=== PATIENT | male | born 1990 | race Caucasian/White ===

== ENCOUNTER → 2022-08-28 09:44 | Outpatient (BNVA) | payer OTHER, SELFPAY | PROVIDERS: Visit Provider Family Medicine | DX: R01.1 Cardiac murmur, unspecified (principal); Z76.89 Persons encountering health services in other specified circumstances | CPT/HCPCS: 80053; 84443; 85025 ==

== ENCOUNTER 2023-06-23 10:29 | Outpatient (CLI) | payer OTHER, SELFPAY ==
--- NOTE | 2023-06-23 10:39 | XR_ITS ---
WS: [id number] Exam: XR chest 2V* [id number] Date/Time of Exam: 06/23/2023 10:51 AM Reason For Exam: Chest pain No priors. The lungs are clear and fully expanded. Normal cardiomediastinal silhouette. Regional bony elements are intact. Benign-appearing pulmonary and mediastinal calcifications. IMPRESSION: 1. No acute cardiopulmonary process.
== END 2023-06-23 10:30 | disposition home or self-care (01) ==
PROVIDERS: Visit Provider Family Medicine
DX: R07.9 Chest pain, unspecified (principal)
CPT/HCPCS: 71046

== ENCOUNTER → 2024-08-18 11:10 | Outpatient (BNVA) | payer OTHER, SELFPAY | DX: I44.0 Atrioventricular block, first degree (principal) | CPT/HCPCS: 80053; 85025 ==

== ENCOUNTER 2025-04-11 19:44 | Emergency (ER) | payer OTHER, SELFPAY ==
[2025-04-11 20:01] VITALS: BP 98/59; PULSE 72; RESP 16; TEMP 36.9; O2SAT 97
--- NOTE | 2025-04-11 20:09 | ECG_ITS ---
[employer] Test Date: 2025-04-11 Pat Name: Kev Garcia Department: Room: Gender: Male Purchasing Coordinator: : 1990 Requested By: Deisi Jarvis Order Number: [id number] Zabrina MD: Luz Farias M.D. Measurements Intervals [place] Rate: 70 P: 62 [place]: 226 QRS: 32 QRSD: 112 T: 37 QT: 387 QTc: 418 Interpretive Statements SINUS RHYTHM WITH FIRST DEGREE AV BLOCK SEPTAL MYOCARDIAL INFARCTION , OF INDETERMINATE AGE [40+ ms Q WAVE IN V1/V2] No previous ECG available for comparison Electronically Signed On 04-13-2025 06:09:14 CDT by Luz Farias M.D. [id number]
[2025-04-11 21:26] LABS: Influenza A NEGATIVE (Negative); Influenza B NEGATIVE (Negative); Respiratory Syncytial Virus Ce NEGATIVE (Negative)
[2025-04-11 21:34] LABS: Basophils % 0.6 %; Eosinophils # 0.1 10^3/uL (0.0-0.8); Eosinophils % 0.7 %; Hematocrit 44.7 % (37-53); Lymphocytes # 0.5 10^3/uL (0.8-4.8); Lymphocytes % 7.4 %; Mean Corpuscular Hemoglobin 29.5 pg (27-33); Mean Corpuscular Volume 86.6 fl (82-101); Mean Platelet Volume 10.2 fL (7.4-10.4); Monocytes # 0.8 10^3/uL (0.2-0.9); Monocytes % 11.6 %; Neutrophils # 5.68 10^3/uL (1.8-7.7); Neutrophils % 79.1 %; Nucleated Red Blood Cells % 0 %; Platelet Count 180 10^3/cmm (157-399); Red Blood Count 5.16 10^6/uL (3.85-5.65); Red Cell Distribution Width 12.6 % (12.1-15.1); White Blood Count 7.17 10^3/uL (3.29-11.43)
[2025-04-11 21:36] VITALS: BP 100/66; PULSE 67; RESP 16; O2SAT 95
--- NOTE | 2025-04-11 21:52 | ED_ITS ---
HPI - Syncope 2 General: Chief Complaint: Syncope Stated Complaint: possible covid positive/ syncope Time Seen by Provider: 04/11/25 21:46 Source: patient and EMS Mode of arrival: EMS Limitations: no limitations History of Present Illness: 34-year-old male states he has had COVID -like symptoms over the last 2 days some bodyaches chills states that [place] started to feel diaphoretic felt lightheaded and had a syncopal event. He did receive IV fluids en route by EMS states that he feels much improved currently denies hitting his head denies any headache denies any chest pain. Associated symptoms: Reports headache(s); Deny abdominal pain, chest pain, fever(s) or nausea Related Data Previous Rx's ?Medication ?Instructions ?Recorded doxycycline hyclate 100 mg capsule 100 mg PO BID #14 c aps 09/15/24 Allergies Allergy/AdvReac Type Severity Reaction Status Date / Time No Known Allergies Allergy Verified 08/18/24 10:46 Review of Systems 2 Const: Denies: fever(s), chills, body aches or change in appetite ENMT: Denies: throat pain or dental pain Card: Denies: chest pain Resp: Denies: dyspnea GI: Denies: abdominal pain, nausea, vomiting or diarrhea Musc: Denies: neck pain or back pain Skin/Breast: Denies: rash Neuro: Reports: headache(s) PFSH ED 2 PFSH: Medical History Encounter to establish care Family History Mother No problems noted. Father Diabetes Hypertension Social History Smoking and tobacco/nicotine status: never used tobacco/nicotine Alcohol intake: never Substance/Drug Use: never Adopted: No Physical Exam 2 Const: COMMON NORMALS: no acute distress, patient oriented x3 and healthy appearing HENMT: COMMON NORMALS: normocephalic and atraumatic HEAD & SCALP: n ormocephalic and atraumatic Eye: COMMON NORMALS: conjunctivae normal CONJUNCTIVA: Yes conjunctivae normal Neck/C-Spine: COMMON NORMALS: full ROM and supple Chest: COMMONS NORMALS: normal inspection of the chest Resp: COMMON NORMALS: normal respiratory effort, No retractions, No use of accessory muscles and clear to auscultation bilaterally AUSCULTATION: clear to auscultation bilaterally Cardio: COMMON NORMALS: regular rate, regular rhythm and No murmurs present (Cardio) RATE: regular rate RHYTHM: regular rhythm Extremity: COMMON NORMALS: normal to inspection and full ROM Neuro: COMMON NORMALS: patient oriented x3, moves all extremities and no focal motor deficits Psych: COMMON NORMALS: mental status grossly normal, Normal thought process present and cooperative THOUGHT PROCESS: Normal thought process present Skin: COMMON NORMALS: no rashes or lesions noted and no wounds GENERAL SKIN EXAM: no rashes or lesions noted Course 2 Vital Signs: Vital signs: Vital Signs Temperature 98.5 F 04/11/25 20:01 Pulse Rate 67 04/11/25 21:36 Respiratory Rate 16 04/11/25 21:36 Blood Pressure 100/66 04/11/25 21:36 Pulse Oximetry 95 04/11/25 21:36 Oxygen Delivery Me thod Room Air 04/11/25 21:36 MDM - Syncope Medical Decision Making Patient presents after syncopal event likely vasovagal he also tested positive for COVID he is well-appearing here stable for discharge at this time he feels much improved. Follow-up PCP return if worsening Medical Records I reviewed the patient's medical records. Lab Data I reviewed the patient's lab results. 04/11/25 21:24 04/11/25 21:24 Laboratory Results WBC 7.17 10^3/uL (3.29-11.43) 04/11/25 21:24 RBC 5.16 10^6/uL (3.85-5.65) 04/11/25 21:24 Hgb 15.20 g/dL (11.27-16.99) 04/11/25 21:24 Hct 44.7 % (37-53) 04/11/25 21:24 MCV 86.6 fl (82-101) 04/11/25 21:24 MCH 29.5 pg (27-33) 04/11/25 21:24 MCHC 34.0 g/dL (30-55) 04/11/25 21:24 RDW 12.6 % (12.1-15.1) 04/11/25 21:24 Plt Count 180 10^3/cmm (157-399) 04/11/25 21:24 MPV 10.2 fL (7.4-10.4) 04/11/25 21:24 Neut % (Auto) 79.1 % 04/11/25 21:24 Lymph % (Auto) 7.4 % 04/11/25:24 [place] % (Auto) 11.6 % 04/11/25: Eos % (Auto) 0.7 % 04/11/25: Baso % (Auto) 0.6 % 04/11/25: Neut # (Auto) 5.68 10^3/uL (1.8-7.7) 04/11/25: Lymph # (Auto) 0.5 10^3/uL (0.8-4.8) L 04/11/25: [place] # (Auto) 0.8 10^3/uL (0.2-0.9) 04/11/25: Eos # (Auto) 0.1 10^3/uL (0.0-0.8) 04/11/25: Baso # (Auto) 0.0 10^3/uL (0.0-0.1) 04/11/25: Nucleated RBC % (auto) 0 % 04/11/25: Nucleated RBCs # 0.0 /100WBC 04/11/25 21:24 Sodium 138 mmol/L (136-145) 04/11/25 21:24 Potassium 4.0 mmol/L (3.5-5.1) 04/11/25 21: Chloride 101 mmol/L (98-107) 04/11/25 21:24 Carbon Dioxide 25 mmol/L (22-29) 04/11/25 21:24 Anion Gap 16.0 (5-19) 04/11/25 21:24 BUN 13 mg/dL (6-20) 04/11/25 21: Creatinine 1.0 mg/dL (0.7-1.2) 04/11/25 21:24 GFR Calculation 86.6 mL/min (90-130) L 04/11/25 21:24 Glucose 114 mg/dL (65-115) 04/11/25 21:24 Calculated Osmolality 287 mOsm/kg (285-295) 04/11/25 21:24 Calcium 9.4 mg/dL (8.5-10.5) 04/11/25 21:24 Total Bilirubin 0.5 mg/dL (0.15-1.2) 04/11/25 21:24 AST 22 U/L (0-40) 04/11/25 21:24 ALT 23 U/L (0-41) 04/11/25 21:24 Alkaline Phosphatase 65 U/L (40-130) 04/11/25 21:24 Total Protein 8.0 g/dL (6.6-8.7) 04/11/25 21:24 Albumin 4.5 g/dL (3.5-5.2) 04/11/25 21:24 Globulin 3.5 g/dL (1.3-4.6) 04/11/25 21:24 Influenza A (PCR) Negative (Negative) 04/11/25 20:13 Influenza Type B (PCR) Negative (Negative) 04/11/25 20:13 RSV (PCR) Negative (Negative) 04/11/25 20:13 SARS-CoV-2 (PCR) Positive (Negative) A 04/11/25 20:13 No radiology studies performed this visit Discharge Plan Discharge Patient Disposition: Home Clinical Impression: Syncope, COVID-19 Condition: Stable Prescriptions: No Action doxycycline hyclate 100 mg capsule 100 mg PO BID Qty: 14 0RF Discharge Orders: Discharge ED (Routine); Ordered 04/11/25 Ordered By: Deisi Jarvis Referrals: Sabrina Kim NP [Primary Care Provider, [facility]] - 4-7 days Discharge Diet: Advance as tolerated Discharge Activity: Resume usual activity Patient Instructions: Syncope (ED), COVID-19 (Coronavirus Disease 2019) (ED) Print Language: [place] Coding Level of Care Code ED [employer] Constance Nicholas
[2025-04-11 21:57] LABS: Alanine Aminotransferase 23 U/L (0-41); Albumin Level 4.5 g/dL (3.5-5.2); Alkaline Phosphatase 65 U/L (40-130); Aspartate Amino Transferase 22 U/L (0-40); Blood Urea Nitrogen 13 mg/dL (6-20); Calcium 9.4 mg/dL (8.5-10.5); Carbon Dioxide 25 mmol/L (22-29); Chloride 101 mmol/L (98-107); Creatinine Clr Calc Pharmacy 129.0624; Globulin 3.5 g/dL (1.3-4.6); Glomerular Filtration Rate 86.6 mL/min (90-130); Glucose 114 mg/dL (65-115); Osmolality Calculated 287 mOsm/kg (285-295); Sodium 138 mmol/L (136-145); Total Bilirubin 0.5 mg/dL (0.15-1.2)
[2025-04-11 22:15] LABS: SARS-CoV-2 PCR Positive (Negative)
[2025-04-11 22:36] VITALS: BP 106/67; PULSE 65; RESP 16; O2SAT 97
== END 2025-04-11 22:37 | disposition home or self-care (01) ==
PROVIDERS: Emergency Provider Emergency Medicine
DX: R55 Syncope and collapse (principal); U07.1 COVID-19; Z11.52 Encounter for screening for COVID-19
CPT/HCPCS: 36415; 80053; 85025; 87637; 93005; 99284